=== PATIENT | female | born 1965 | race Caucasian/White ===

== ENCOUNTER 2018-08-22 07:24 | Inpatient (IN) ==
--- NOTE | 2018-08-03 14:43 | Anesthesiology Consultation ---
Date of Service August 03, 2018 Assessment & Plan (1) Encounter for pre-operative examination: Chart Review Chart Review: Acceptable Risk for Surgery and Patient seen in Pre Admission Testing Consults Requested medical (Dr. Goncalves (08/08)) Patient was seen by PCPs office on 08/08/18. Per visit note, "pt is medically stable for surgery." Teaching & Discussion Pre-Anesthesia Teaching/Discussion Notes: Instructed NPO after midnight before surgery, except medications with 15 cc of water. Medication instructions provided according to the PAT guidelines. History Surgery Operation Date: 08/22/18 09:05 Proposed Procedures p Left Total Hip Arthroplasty Anterior - Ernst Fitzgerald, Height/Weight Height: 5 ft 6 in Weight: 83.8 kg Allergies Allergy/AdvReac Type Severity Reaction Status Date / Time No Known Allergies Allergy Verified 07/28/18 12:02 Medications Home Medications Medication Instructions Recorded Confirmed Last Taken atenolol 1.5 tab PO BID 07/28/18 07/28/18 07/28/18 cholecalciferol (vitamin D3) 1,000 unit PO DAILY 07/28/18 07/28/18 Unknown [Vitamin D3] cyanocobalamin (vitamin B-12) 500 mcg PO DAILY 07/28/18 07/28/18 Unknown [Vitamin B-12] ibuprofen-famotidine [Duexis] 1 tab PO TID 07/28/18 07/28/18 07/28/18 multivitamin [Multiple Vitamins] 1 tab PO DAILY 07/28/18 07/28/18 Unknown omega 5-edx-hqa-fish oil [Fish Oil] 1 cap PO DAILY 07/28/18 07/28/18 Unknown Past Medical History Medical History Benign neoplasm of pituitary gland Borderline high cholesterol Hypertension Osteoarthritis Past Family History Family History Mother Family history of heart disease Grandfather Family history of prostate cancer Past Surgical History Surgical History History of appendectomy History of carpal tunnel surgery of right wrist History of eye surgery LASIK History of hip surgery LEFT ARTHROSCOPY History of removal of cyst RIGHT BREAST, LEFT THIGH, RIGHT FOREARM History of right oophorectomy History of tonsillectomy Nausea and vomiting after administration of anesthetic agent "PATCH BEHIND EAR REALLY HELPED" Past Anesthesia History No Hx of Anesthesia Complications and No Family Hx of Anesthesia Complications History of PONV Yes Motion Sickness Screening History of Motion Sickness: Yes Social History Smoking Status: Never smoker Do You Dip or Chew Tobacco: No Hx Alcohol Use: Yes Alcohol type: beer alcohol intake frequency: a few times a week Hx Substance Use: No substance use type: does not use Exercise / Class Metabolic Activity II 4-5 Yardwork/Stairs/Walk up hill Tries to walk daily. Able to climb FOS. Denies CP or SOB. Review of Systems Patient denies chest pain, shortness of breath, dyspnea on exertion, reflux, cough, wheezing, palpitations. +joint pain (hip, low back occasionally) Physical Exam Vital Signs BP: 110/73 P: 50 R: 16 T: 98.1 SPO2: 97% on RA ENMT Thyromental Distance: < 3.5 Finger Breadths (3) Mallampati Class: III Neck normal visual inspection and trachea midline; neck extension not limited Respiratory normal respiratory effort Auscultation: lungs clear to auscultation bilaterally Cardiovascular Rate/Rhythm: + bradycardic Heart Sounds: no murmur Neurologic moves all extremities Psychiatric Orientation: alert and oriented x 3 Testing Electrocardiogram Date: 08/03/18 Findings: + SB @ (45) Chest X-Ray Date: 08/03/18 Findings: + NAD FINDINGS: PA and lateral chest radiographs are obtained. No prior studies are available for comparison at the time of dictation. The cardiomediastinal silhouette is unremarkable. The lungs and pleural spaces are clear. There is no pneumothorax. The bony thorax appears intact. Calcific tendinopathy is noted in the left shoulder. IMPRESSION: No active disease in the chest. Laboratory Results 08/03/18 15:15 08/03/18 15:15 Blood Type A Negative 08/03/18 15:15 Antibody Screen NEGATIVE 08/03/18 15:15 PT 10.5 Seconds (9.0-12.0) 08/03/18 15:15 INR 1.0 (0.9-1.1) 08/03/18 15:15 APTT 25.9 Seconds (21.0-31.0) 08/03/18 15:15 Hemoglobin A1c 5.2 % (4.5-5.6) 08/03/18 15:15 Urine Color Yellow 08/03/18 15:15 Urine Appearance Clear (Clear) 08/03/18 15:15 Urine pH 5.5 (4.5-7.5) 08/03/18 15:15 Ur Specific [place] 1.014 (1.000-1.030) 08/03/18 15:15 Urine Protein Negative (Negative) 08/03/18 15:15 Urine Glucose (UA) Negative (Negative) 08/03/18 15:15 Urine Ketones Negative (Negative) 08/03/18 15:15 Urine Nitrite Negative (Negative) 08/03/18 15:15 Ur Leukocyte Esterase Negative (Negative) 08/03/18 15:15 08/03/18 15:15 Urine Culture - Final Urine,Clean Catch No growth - less than 1,000 colonies/mL.
--- NOTE | 2018-08-03 14:45 | PAT Medication Instructions ---
Medication Instructions Date of Service August 03, 2018 Home Medications atenolol 1.5 tab PO BID cholecalciferol (vitamin D3) 1,000 unit PO DAILY cyanocobalamin (vitamin B-12) 500 mcg PO DAILY ibuprofen-famotidine [Duexis] 1 tab PO TID multivitamin [Multiple Vitamins] 1 tab PO DAILY omega 2-qcc-bce-fish oil [Fish Oil] 1 cap PO DAILY ASK your surgeon for instructions ibuprofen-famotidine [Duexis] 1 tab PO TID STOP taking 2 weeks before surgery omega 9-ryg-bdq-fish oil [Fish Oil] 1 cap PO DAILY DO NOT take the morning of surgery cholecalciferol (vitamin D3) 1,000 unit PO DAILY cyanocobalamin (vitamin B-12) 500 mcg PO DAILY multivitamin [Multiple Vitamins] 1 tab PO DAILY Take morning of surgery With a small sip of water, OTHERWISE NOTHING TO EAT OR DRINK AFTER MIDNIGHT: atenolol 1.5 tab PO BID Take evening before surgery atenolol 1.5 tab PO BID Other Notes If you have any questions please call us at [phone] or [phone] or [phone] or [phone]
[2018-08-03 15:48] LABS: Basophils # (auto) 0.04 K/uL (0-0.2); Basophils % (auto) 0.6 %; Eosinophils # (auto) 0.21 K/uL (0-0.5); Eosinophils % (auto) 3.2 %; Hematocrit (blood only) 37.7 % (37-47); Hemoglobin 12.9 g/dL (12.0-16.0); Immature Granulocytes # (auto) 0.01 K/uL (0.00-0.02); Immature Granulocytes % (auto) 0.2 %; Lymphocytes # (auto) 2.75 K/uL (1.2-3.4); Lymphocytes % (auto) 41.6 %; Mean Corpuscular Hgb Conc 34.2 g/dL (32-36); Mean Platelet Volume 10.5 fL (7.4-10.4); Monocytes # (auto) 0.37 K/uL (0.11-0.59); Monocytes % (auto) 5.6 %; Neutrophils # (auto) 3.23 K/uL (1.4-6.5); Neutrophils % (auto) 48.8 %; Platelet Count 211 K/uL (130-400); RDW Coefficient of Variation 12.5 % (11.5-14.5); RDW Standard Deviation 40.5 fL (36.4-46.3); Red Blood Count 4.19 M/uL (4.2-5.4); White Blood Count 6.61 K/uL (4.8-10.8)
--- NOTE | 2018-08-03 15:49 | XRay Report ---
TWO VIEW CHEST CLINICAL HISTORY: Preoperative examination. FINDINGS: PA and lateral chest radiographs are obtained. No prior studies are available for compariso n at the time of dictation. The cardiomediastinal silhouette is unremarkable. The lungs and pleural spaces are clear. There is no pneumothorax. The bony thorax appears intact. Calcific tendinopathy is noted in the left shoulder. IMPRESSION: No active disease in the chest. Electronically signed by: Isrrael Yepez M.D. 08/03/2018 3:48 PM
[2018-08-03 15:52] LABS: Appearance Urine Clear (Clear); Bilirubin Urine Negative (Negative); Blood Urine Negative (Negative); Color Urine Yellow; Glucose Urine UA Negative (Negative); Ketones Urine Negative (Negative); Leukocyte Esterase Urine Negative (Negative); Nitrite Urine Negative (Negative); Protein Urine Negative (Negative); Specific Gravity Urine 1.014 (1.000-1.030); Urobilinogen Urine Negative (Negative); pH Urine 5.5 (4.5-7.5)
[2018-08-03 15:54] LABS: Albumin Level 3.7 gm/dl (3.4-5.0); BUN Creatinine Ratio 23.7 (10-20); Calcium 9.1 mg/dl (8.5-10.1); Creatinine Clr Calc Pharmacy 74.8 ml/min; Est GFR (African American) 78.8; Potassium 3.9 mmol/L (3.5-5.1)
[2018-08-03 15:57] LABS: Partial Thromboplastin Time 25.9 Seconds (21.0-31.0); Prothrombin Time 10.5 Seconds (9.0-12.0)
[2018-08-04 06:16] LABS: Estimated Average Glucose 103 mg/dl; Hemoglobin A1C 5.2 % (4.5-5.6)
--- NOTE | 2018-08-21 17:28 | History & Physical Report ---
Date of Service August 21, 2018 Assessment & Plan (1) Degenerative joint disease (DJD) of hip: I have indicated the patient for left anterior total hip replacement. The risks, benefits and complications of surgery were explained to the patient which include but not limited to infection, acute blood loss, DVT/PE, injury to nerves, vessels, bone, soft tissue, arthrofibrosis, chronic pain, failure of the prosthesis, hip dislocation, leg length discrepancy, need for additional surgery, cardiac and pulmonary events and . The patient wished to proceed with surgery and informed consent was obtained at this time. We will plan for ASA BID post-operatively for DVT prophylaxis. Upon discharge the patient will be discharged home with home health services. Appropriate clearances by PCP were obtained. History of Present Illness Chief Complaint: Left hip pain/djd Primary Care Provider: Marcelo Goncalves The patient is a 53 year old female who presents with complaints of severe left hip pain and DJD. The patient has failed outpatient conservative treatments to this point which included NSAIDs, IA corticosteroid injections, PT/HEP. The patient's pain and limited function have progressed to the point where they severely hinder their activities of daily living and they no longer tolerate exercise programs. They are requesting to proceed with total hip replacement surgery. Allergies Allergy/AdvReac Type Severity Reaction Status Date / Time moxifloxacin [From Avelox] AdvReac Nausea Verified 08/22/18 07:48 Home Medications Home Medications Medication Instructions Recorded Confirmed Type atenolol 1.5 tab PO BID 07/28/18 08/22/18 History cholecalciferol (vitamin D3) 1,000 unit PO DAILY 07/28/18 08/22/18 History [Vitamin D3] cyanocobalamin (vitamin B-12) 500 mcg PO DAILY 07/28/18 08/22/18 History [Vitamin B-12] ibuprofen-famotidine [Duexis] 1 tab PO TID 07/28/18 08/22/18 History multivitamin [Multiple Vitamins] 1 tab PO DAILY 07/28/18 08/22/18 History omega 3-fek-kwa-fish oil [Fish Oil] 1 cap PO DAILY 07/28/18 08/22/18 History diphenhydramine-acetaminophen 0.5 tab PO QPM PRN 08/22/18 08/22/18 History [Tylenol PM Extra Strength] Past Med/Surg History Medical History Benign neoplasm of pituitary gland Borderline high cholesterol Hypertension Osteoarthritis Surgical History History of appendectomy History of carpal tunnel surgery of right wrist History of eye surgery LASIK History of hip surgery LEFT ARTHROSCOPY History of removal of cyst RIGHT BREAST, LEFT THIGH, RIGHT FOREARM History of right oophorectomy History of tonsillectomy Nausea and vomiting after administration of anesthetic agent "PATCH BEHIND EAR REALLY HELPED" Family History Mother Family history of heart disease Grandfather Family history of prostate cancer Social History Preferred Language: Bulgarian Communication Ability: Effective X Ray Service Engineer Required: No Beliefs That Will Affect Care: None Current Living Situation: Spouse Other Information That Helps Us Care for You: No Feels Safe at Home: Yes Smoking Status: Never smoker Do You Dip or Chew Tobacco: No Hx Alcohol Use: Yes Alcohol type: beer Hx Substance Use: No Review of Systems Review of Systems: All systems reviewed & are unremarkable except as noted in HPI & below Constitutional: as per Subjective / HPI Physical Exam Physical Exam: LLE NVSI +EHL/FHL/TA/GS SILT grossly, +2 DP pulse, compartments soft NT, painful limited ROM of the hip, anatalgic gait. Constitutional: WD/WN, vitals as above Eyes: PERRL, conjunctivae normal, anicteric sclerae ENMT: external ear and nose normal, oropharynx normal Neck: trachea midline, no thyromegaly Respiratory: normal respiratory effort, lungs clear to auscultation Cardiovascular: RRR, no murmur, no edema Gastrointestinal (Abdomen): normal bowel sounds, soft, nontender, no hepatosplenomegaly Musculoskeletal: no cyanosis or clubbing, extremities motor strength 5/5 Skin: no rashes, warm and dry Neurologic: patellar DTR's 2+ bilat, sensation intact Psychiatric: A+Ox3, euthymic affect Lymphatic: no cervical or axillary lymphadenopathy Results & Data Diagnostic Findings Multiple views of the hip demonstrates severe DJD with complete loss of the joint space. +osteophytes, +sclerosis, +subchondral cysts.
[~2018-08-22 07:24] MED LIST: ACETAMINOPHEN 500 MG TAB PO SCH; BUPIVACAINE 0.5 % 5 MG/1 ML PF 10ML VIAL ONE; CEFAZOLIN 2000MG 2,000 MG/15 ML SYR IV SCH; CeleBREX 200 MG CAP PO SCH; FAMOTIDINE 20 MG TAB PO SCH; LIDOCAINE HCL 2% 2 ML VIAL/AMP(20MG/ML) INFIL ONE; LR 500ML BOLUS, THEN 15ML/HR IV SCH; METOCLOPRAMIDE HCL 10 MG TABLET PO SCH; MIDAZOLAM HCL 1 MG/ML 2ML VIAL ONE; ONDANSETRON INJ 2 MG/ML 2 ML VIAL ONE; PROPOFOL IV EMULSION 10 MG/ML 20 ML VIAL IV ONE; SCOPOLAMINE 1.5 MG TDSY TD SCH; TRANEXAMIC ACID 1,000 MG **IV Intra-op IV SCH; TRANEXAMIC ACID 1,000 MG **IV Pre-op IV SCH; dexAMETHasone 4 MG TAB PO SCH; fentaNYL citrate 100 MCG/2 ML VIAL ONE
[2018-08-22] MEDS ORDERED: ONDANSETRON INJ 2 MG/ML 2 ML VIAL IV PRN ×2 (07:33→12:45)
[2018-08-22] MEDS ORDERED: PHENYLEPHRINE 100MCG/ML 5ML SYR IV PRN (07:33)
[2018-08-22] MEDS ORDERED: HYDROmorphone INJ 1 MG/ML SYRINGE IV PRN (07:33)
[2018-08-22] MEDS ORDERED: PROMETHAZINE HCL 12.5 MG in SODIUM CHLORIDE 0.9% 50 ML IV PRN (07:33)
[2018-08-22] MEDS ORDERED: ePHEDrine sulfate 50 MG/ML AMP IV PRN (07:33)
[2018-08-22] MEDS ORDERED: ATROPINE SULFATE 0.1 MG/ML 10ML SYR IV PRN (07:33)
[2018-08-22] MEDS ORDERED: fentaNYL citrate 100 MCG/2 ML VIAL IV PRN (07:33)
[2018-08-22 08:33] LABS: Pregnancy Test, Serum Negative (Negative)
[2018-08-22] MEDS ORDERED: ORTHO JOINT ANESTHETIC ONE (09:06)
[2018-08-22] MEDS ORDERED: BACITRACIN INJ 50,000 UNIT VIAL ONE (09:07)
[2018-08-22] MEDS ORDERED: POVIDONE-IODINE OP SOLN 30 ML BTL ONE (09:07)
--- NOTE | 2018-08-22 09:31 | History & Physical Bridge Note ---
Date of Service August 22, 2018 History & Physical Bridge Note I have examined the patient, reviewed the History & Physical and in the interval since the performance of the History & Physical I have noted the following changes of clinical significance: no changes noted
[2018-08-22] MEDS ORDERED: ROPIVACAINE 0.5% HCL/PF 150 MG, BUPIVACAINE 0.5% MPF 30 ML, EPINEPHrine 30MG/30ML (OR U... INFIL SCH (09:45)
[2018-08-22] MEDS ORDERED: DEXAMETHASONE SOD INJ 4 MG/ML VIAL ONE (10:15)
[2018-08-22] MEDS ORDERED: ePHEDrine sulfate 50 MG/ML SYR ONE (10:46)
[2018-08-22] MEDS ORDERED: PROPOFOL IV EMULSION 10 MG/ML 20 ML VIAL IV ONE (11:18)
--- NOTE | 2018-08-22 11:23 | Post Operative Brief Note ---
Immediate Post Op Note v1 Date of Surgery August 22, 2018 Pre & Post Diagnosis Operation Date: 08/22/18 09:30 Pre-Op Diagnosis: Left hip degenerative joint disease Post-Op Diagnosis: Left hip degenerative joint disease Procedure Operation Date: 08/22/18 09:30 Actual Procedures p Left Anterior Total Hip Arthroplasty(Left) - Ernst Fitzgerald DO Surgeon Ernst Fitzgerald DO Enrobing Machine Feeder Yossi Batista Estimated Blood Loss 120 Findings Consistent with Post-Op Diagnosis Fluids 1400 CC LR Specimens femoral head Anesthesia Type Spinal MAC Complications none Disposition Disposition: Recovery Room Overlapping Procedure I was present for: the critical portions of procedure. I was immediately available: during the entire case. Back up surgeon: was not required during procedure.
--- NOTE | 2018-08-22 11:43 | Operative Report ---
Post Operative Report Pre & Post Diagnosis Operation Date: 08/22/18 09:30 Pre-Op Diagnosis: Left hip degenerative joint disease Post-Op Diagnosis: Left hip degenerative joint disease Procedure Operation Date: 08/22/18 09:30 Actual Procedures p Left Anterior Total Hip Arthroplasty(Left) - Ernst Fitzgerald DO Surgeon Ernst Fitzgerald DO Time Study Technologist Yossi Batista Estimated Blood Loss 120 Findings Consistent with Post-Op Diagnosis Fluids 1400 cc of lactated Ringer Specimens Femoral head Anesthesia Type Spinal MAC Disposition Disposition: Recovery Room Indications The patient is a 53-year-old female who presents with severe progressive left hip DJD who has failed outpatient conservative treatments. I indicated the patient for a anterior total hip replacement and the risks and benefits were explained in detail which include but not limited to infection, bleeding, blood clot, damage to surrounding bone, nerves, vessels, soft tissue, hip dislocation, failure of the prosthesis, leg length discrepancy, need for additional surgery and . The patient agreed to proceed with replacement of the hip and informed consent was obtained. Appropriate clearances were obtained. Description of Procedure COMPONENTS USED: [employer] hip system: Acetabulum size 40, femur size 7 high offset, femoral head 32-3, liner 3240, acetabular screw 25 mm. DESCRIPTION OF PROCEDURE: Following satisfactory spinal anesthesia, the patient was placed supine on the OR table. The right leg was placed in the well leg espino and the left leg in the traction device. The left leg was prepared with ChloraPrep and draped sterilely. A surgical timeout was performed, patient identified in site xiang confirmed. Appropriate antibiotics were given. A standard anterior approach in the interval between the sartorius and tensor muscles was performed. Dissection was carried down through subcutaneous tissues. Electrocautery was utilized for hemostasis. Circumflex femoral vessels were identified, tied and ligated. The anterior capsular fat pad was removed and the capsulotomy was performed revealing the arthritic femoral neck and head. A femoral neck cut was made with reciprocating saw and the bone fragments removed. The acetabular self-retraining retractor was placed. Acetabular reaming was completed under fluoroscopic guidance, a 48 shell was impacted into an anatomic position and secured with a dome screw. Local anesthetic was placed and following irrigation, the polyethylene liner was placed. The femur was placed into position of external rotation, extension and adduction. Femoral canal was prepared up to the size 7 high offset. Trial reduction with a -3 neck length head showed good soft tissue tension, leg lengths restored, and good fit and fill of the proximal canal using fluoroscopic landmarks. The hip was dislocated. The trial component was removed. The final implant was placed. The hip was irrigated with sterile saline soluation and reduced. A Betadine soak was performed. After 3 minutes, the hip was once more irrigated with copious sterile saline solution with bacitracin. Esther-incisional soft tissue was injected utilizing [place] Orthomix which includes a combination of Ropivicaine 0.5% 150mg, Bupivicaine 0.5%/Epinephrine 1:200,000 30ml, Toradol 30mg, Dexamethasone 4mg, Ketamine 10mg, Clonidine 100mcg and NSS 30ml solution. The capsule was then closed with 1-0 Vicryl interrupted figure of eight sutures. The fascia was closed with a running suture of #1 Vicryl, the subcutaneous tissues with 2-0 Vicryl and the skin with a running subcuticular stitch of 3-0 V-Loc. Dermabond prineo and a dry dressing which included Suzanne incisional VAC were applied. The patient tolerated the procedure well and was transported to PACU in stable condition. Due to the complex nature of the procedure, the entire surgery was performed with the operational assistance of Yossi Batista PA-C. The camp assistant, under direct supervision, was involved in the actual performance of all aspects of the surgical procedure including patient positioning, hemostasis, tissue retraction, instrument management and wound closure. I attest to the content of the Intraoperative Record and any orders documented therein. Any exceptions are noted below.
--- NOTE | 2018-08-22 11:45 | Fluoroscopy Report ---
FL hip LT 1V CLINICAL HISTORY: LEFT ANTERIOR HIP COMPARISON STUDY: None. FLUOROSCOPY TIME: 0.8 minutes. FINDINGS: 2 fluoroscopic spot image of the left hip demonstrate a left total hip arthroplasty. The pugh rdware is intact. No fracture or dislocation. IMPRESSION: Fluoroscopy provided for a left total hip arthroplasty. Electronically signed by: Kilo [place] M.D. 08/22/2018 11:44 AM
--- NOTE | 2018-08-22 12:21 | XRay Report ---
XR hip 1V LT w pelvis HISTORY: 53 years-old Female IN PACU - A/P PELVIS and LATERAL HIP left hip total joint arthroplasty . History of degenerative joint disease COMPARISON: Left hip fluoroscopic images of same day TECHNIQUE: AP view of the pelvis with crosstable lateral view of the left hip FINDINGS: Left hip total joint arthroplasty demonstrates satisfactory alignment. No acute fracture or retained foreign body. Expected postsurgical soft tissue swelling and deep tissue air with surgical drainage c atheter. Mild osteoarthritis about the right hip. IMPRESSION: Left hip total joint arthroplasty demonstrates satisfactory alignment. The above report was generated using voice recognition software. It may contain grammatical, syntax o r spelling errors. Electronically signed by: Delvis Vargas M.D. 08/22/2018 12:20 PM
--- NOTE | 2018-08-22 12:29 | Anesthesiology Progress Note ---
Date of Service August 22, 2018 Anesthesia Post Procedure Vital Signs Vital Signs: Temp Pulse Pulse Resp BP Pulse Ox 08/22/18 12:25 36.4 C L 53 L 15 110/76 100 08/22/18 12:15 57 L 13 108/63 100 08/22/18 12:05 60 17 110/74 100 08/22/18 11:56 36.5 C 67 10 L 116/70 99 08/22/18 07:54 36.7 C 46 L 18 169/80 H 99 Notes Mental Status: alert / awake / arousable Patient Amnestic to Procedure: Yes Nausea / Vomiting: adequately controlled Pain: adequately controlled Airway Patency, RR, SpO2: stable & adequate BP & HR: stable & adequate Neuraxial Anesthesia: was administered and sensory block is resolving Anesthetic Complications: no major complications apparent
[2018-08-22] MEDS ORDERED: OXYCODONE HCL IR 5 MG TAB (IMMEDIATE RELEASE) PO PRN (12:45)
[2018-08-22] MEDS ORDERED: BISACODYL 10 MG SUPP PR PRN (12:45)
[2018-08-22] MEDS ORDERED: METOCLOPRAMIDE HCL INJ 5 MG/ML 2 ML VIAL IV PRN (12:45)
[2018-08-22] MEDS ORDERED: HYDROmorphone INJ 0.5 MG/0.5 ML SYR IV PRN (12:45)
[2018-08-22] MEDS ORDERED: NALOXONE HCL 0.4 MG/1 ML VIAL/CARP IV PRN (12:45)
[2018-08-22] MEDS ORDERED: MAGNESIUM HYDROXIDE SUSP 30 ML UDC PO PRN (12:45)
[2018-08-22] MEDS ORDERED: SODIUM CHLORIDE 0.9% 1000ML 1,000 ML IV SCH (13:45)
[2018-08-22] MEDS: KETOROLAC TROMETHAMINE 15 MG/ML VIAL IV SCH ×2 (14:00→20:11)
[2018-08-22] MEDS: CHECK SCOPOLAMINE PATCH PLACEMENT SCH ×2 (16:04→23:12)
[2018-08-22] MEDS: CEFAZOLIN 2000MG 2,000 MG/15 ML SYR IV SCH (17:24)
[2018-08-22] MEDS: DOCUSATE SODIUM 100 MG CAP PO SCH (20:11)
[2018-08-22] MEDS: ATENOLOL 25 MG TABLET PO SCH (20:12)
[2018-08-22] MEDS ORDERED: SENNA 8.6 MG TAB PO SCH (21:00)
--- NOTE | 2018-08-22 21:47 | Orthopedic Progress Note ---
Date of Service August 22, 2018 Assessment & Plan (1) Degenerative joint disease (DJD) of hip: s/p L anterior SAURABH -ancef x 24 -DVT ppx SCDs, TEDs, ASA BID -WBAT LLE -PT/OT -Post op XR well aligned well fixed prosthesis without fracture/dislocation -am labs -DC planning - Home with HH Subjective Post Operative Progress Note Patient seen sitting up in bed, comfortable, denies complaints, pain well controlled, no acute issues. Review of Systems Review of Systems: All systems reviewed & are unremarkable except as noted in HPI & below Constitutional: as per Subjective / HPI Physical Exam Physical Exam: LLE NVSI +EHL/FHL/TA/GS SILT grossly, +2 DP pulse, compartments soft NT, dressing cdi. Constitutional: WD/WN, vitals as above Results & Data Vital Signs (Past 12 Hours) Vital Signs Temp Pulse Pulse Pulse Resp BP Pulse Ox 08/22/18 20:10 57 L 105/57 L 08/22/18 15:39 36.5 C 51 L 16 117/69 98 08/22/18 14:49 56 L 15 115/66 100 08/22/18 13:35 36.5 C 55 L 16 107/65 99 08/22/18 13:05 51 L 15 119/65 100 08/22/18 12:35 36.5 C 55 L 14 117/72 100 08/22/18 12:25 36.4 C L 53 L 15 110/76 100 08/22/18 12:15 57 L 13 108/63 100 08/22/18 12:05 60 17 110/74 100 08/22/18 11:56 36.5 C 67 10 L 116/70 99
[2018-08-22] MEDS: ACETAMINOPHEN 500 MG TAB PO SCH (23:11)
[2018-08-23] MEDS: CEFAZOLIN 2000MG 2,000 MG/15 ML SYR IV SCH (01:39)
[2018-08-23] MEDS: KETOROLAC TROMETHAMINE 15 MG/ML VIAL IV SCH ×2 (01:39→07:50)
[2018-08-23] MEDS ORDERED: ROPIVACAINE 0.5% HCL/PF 150 MG, BUPIVACAINE 0.5% MPF 30 ML, EPINEPHrine 0.15 MG, Ketoro... INFIL SCH (06:00)
[2018-08-23] MEDS: ACETAMINOPHEN 500 MG TAB PO SCH (06:01)
[2018-08-23 06:09] LABS: Basophils # (auto) 0.01 K/uL (0-0.2); Basophils % (auto) 0.1 %; Hematocrit (blood only) 31.7 % (37-47); Hemoglobin 10.7 g/dL (12.0-16.0); Immature Granulocytes # (auto) 0.05 K/uL (0.00-0.02); Immature Granulocytes % (auto) 0.3 %; Lymphocytes % (auto) 12.8 %; Mean Corpuscular Hgb Conc 33.8 g/dL (32-36); Mean Corpuscular Volume 90.8 fL (80-100); Mean Platelet Volume 10.1 fL (7.4-10.4); Monocytes # (auto) 1.07 K/uL (0.11-0.59); Monocytes % (auto) 7.2 %; Neutrophils # (auto) 11.78 K/uL (1.4-6.5); Neutrophils % (auto) 79.6 %; Platelet Count 176 K/uL (130-400); RDW Coefficient of Variation 12.3 % (11.5-14.5); RDW Standard Deviation 41.1 fL (36.4-46.3); Red Blood Count 3.49 M/uL (4.2-5.4); White Blood Count 14.81 K/uL (4.8-10.8)
[2018-08-23 06:46] LABS: BUN Creatinine Ratio 22.9 (10-20); Calcium 8.6 mg/dl (8.5-10.1); Creatinine Clr Calc Pharmacy 80.3 ml/min; Est GFR (African American) 86.4; Est GFR (Non-African American) 74.5; Potassium 4.1 mmol/L (3.5-5.1)
[2018-08-23] MEDS: CHECK SCOPOLAMINE PATCH PLACEMENT SCH (07:49)
--- NOTE | 2018-08-23 08:13 | Anesthesiology Progress Note ---
Date of Service August 23, 2018 Anesthesia Post Procedure Vital Signs Vital Signs: Temp Pulse Pulse Pulse Resp BP Pulse Ox 08/23/18 03:20 36.9 C 46 L 14 100/60 98 08/22/18 23:06 36.7 C 47 L 14 105/62 100 08/22/18 20:10 57 L 105/57 L 08/22/18 15:39 36.5 C 51 L 16 117/69 98 08/22/18 14:49 56 L 15 115/66 100 08/22/18 13:35 36.5 C 55 L 16 107/65 99 08/22/18 13:05 51 L 15 119/65 100 08/22/18 12:35 36.5 C 55 L 14 117/72 100 08/22/18 12:25 36.4 C L 53 L 15 110/76 100 08/22/18 12:15 57 L 13 108/63 100 08/22/18 12:05 60 17 110/74 100 08/22/18 11:56 36.5 C 67 10 L 116/70 99 Pain Intensity Left Hip: Pain Intensity: 4 Notes Mental Status: alert / awake / arousable Patient Amnestic to Procedure: Yes Nausea / Vomiting: adequately controlled Pain: adequately controlled Airway Patency, RR, SpO2: stable & adequate BP & HR: stable & adequate Hydration State: stable & adequate Neuraxial Anesthesia: was administered and sensory block resolved Anesthetic Complications: no major complications apparent
[2018-08-23] MEDS: DOCUSATE SODIUM 100 MG CAP PO SCH (08:46)
[2018-08-23] MEDS: ATENOLOL 25 MG TABLET PO SCH (08:49)
--- NOTE | 2018-08-23 08:52 | Orthopedic Progress Note ---
Date of Service August 23, 2018 Assessment & Plan (1) Degenerative joint disease (DJD) of hip: s/p L anterior SAURABH POD#1 -ancef x 24 -DVT ppx SCDs, TEDs, ASA BID -WBAT LLE -PT/OT -Post op XR well aligned well fixed prosthesis without fracture/dislocation -am labs - hgb 10.7 -DC planning - Home with HH today Subjective Post Operative Progress Note Patient seen sitting up in bed, comfortable, denies complaints, pain well controlled, no acute issues. Review of Systems Review of Systems: All systems reviewed & are unremarkable except as noted in HPI & below Constitutional: as per Subjective / HPI Physical Exam Physical Exam: LLE NVSI +EHL/FHL/TA/GS SILT grossly, +2 DP pulse, compartments soft NT, dressing cdi. Constitutional: WD/WN, vitals as above Results & Data Vital Signs (Past 12 Hours) Vital Signs Temp Pulse Pulse Resp BP Pulse Ox 08/23/18 08:45 36.6 C 47 L 18 120/66 100 08/23/18 03:20 36.9 C 46 L 14 100/60 98 08/22/18 23:06 36.7 C 47 L 14 105/62 100
[2018-08-23] MEDS ORDERED: MULTIVITAMIN TAB PO SCH (09:00)
[2018-08-23] MEDS ORDERED: ASPIRIN 325 MG ECTAB PO SCH (09:00)
[2018-08-23] MEDS ORDERED: CeleBREX 200 MG CAP PO SCH (21:00)
--- NOTE | 2018-08-30 | Discharge Summary ---
Date of Service August 29, 2018 Admission HPI Per Admitting Provider The patient is a 53 year old female who presents with complaints of severe left hip pain and DJD. The patient has failed outpatient conservative treatments to this point which included NSAIDs, IA corticosteroid injections, PT/HEP. The patient's pain and limited function have progressed to the point where they severely hinder their activities of daily living and they no longer tolerate exercise programs. They are requesting to proceed with total hip replacement surgery. Principal Diagnosis Left anterior total hip replacement Discharge Exam LLE NVSI +EHL/FHL/TA/GS SILT grossly, +2 DP pulse, compartments soft NT, dressing cdi. Constitutional WD/WN, vitals as above Eyes PERRL, conjunctivae normal, anicteric sclerae ENMT external ear and nose normal, oropharynx normal Neck trachea midline, no thyromegaly Respiratory normal respiratory effort, lungs clear to auscultation Cardiovascular RRR, no murmur, no edema Gastrointestinal (Abdomen) normal bowel sounds, soft, nontender, no hepatosplenomegaly Musculoskeletal no cyanosis or clubbing, extremities motor strength 5/5 Skin no rashes, warm and dry Neurologic patellar DTR's 2+ bilat, sensation intact Psychiatric A+Ox3, euthymic affect Lymphatic no cervical or axillary lymphadenopathy Discharge Data Allergies Allergy/AdvReac Type Severity Reaction Status Date / Time moxifloxacin [From Avelox] AdvReac Nausea Verified 08/22/18 07:48 Consultations 08/23/18 08:00 Consult Case Management - Discharge Planning Routine Procedures Performed Operation Date: 08/22/18 09:30 Actual Procedures p Left Anterior Total Hip Arthroplasty(Left) - Ernst Fitzgerald DO Ordered Studies 08/22/18 09:30 FL fluoroscopy <1hr Routine FL hip LT 1V Routine Hospital Course (1) Degenerative joint disease (DJD) of hip: The patient is a 53 -year-old female who presents with long standing hist ory of severe left hip DJD and failed outpatient conservative treatments including NSAIDs, bracing, injections and home walking/exercise program. The patient's symptoms have progressed to the point where it has been difficult to perform even normal activities of daily living. I indicated the patient for a left anterior total hip arthroplasty, the risks, benefits and complications of the procedure include but not limited to infection, bleeding, damage to bone, nerves, vessels, surrounding soft tissue, may develop blood clots, loss of function, leg length discrepancy, dislocation, failure of the components, loosening of the components, the need for additional surgery and . The patient wished to proceed with surgery at this time and informed consent was obtained. Hospital Course: On 08/22/18 the patient was taken to the operating room, adequate anesthesia administered and underwent a left anterior total hip arthroplasty. The patient tolerated the procedure well and was taken to the PACU in stable condition. Post-operatively the patient was started on a DVT ppx medication and given appropriate IV antibiotics. Consults were placed to physical therapy, occupational therapy and case management. On POD#1, the patient did well overnight and their pain was well controlled. Labs were drawn and the Hgb was 10.7. The patient progressed well with PT. Dressings were changed at this time and the incision was clean, dry and intact. The patients hospital stay was relatively uneventful and they were deemed stable by the orthopedic team and consultants to be discharged home with HH on 08/23/18. Discharge Instructions: Upon discharge the patient may weight bear as tolerates through their operative extremity. They were instructed to keep the incision clean and dry at all times. The patient may shower but should not submerge the incision, avoid bathing, pools and hot tubes. The patient was given a script for pain medication and should take as instructed. The patient was given a script for DVT ppx ASA 325mg BID and should take as directed. The patient was instructed to not drive or travel for long distances until cleared to do so. If the patient develops any symptoms of fevers, chills, nausea, vomiting, increased redness, swelling, pain or drainage from the surgical site, they should notify the office and/or proceed to the nearest emergency room. The patient should follow up in 10-14 days after surgery for their routine post-operative follow-up appointment and should call the office to confirm the date and time. s/p L anterior SAURABH POD#1 -ancef x 24 -DVT ppx SCDs, TEDs, ASA BID -WBAT LLE -PT/OT -Post op XR well aligned well fixed prosthesis without fracture/dislocation -am labs - hgb 10.7 -DC planning - Home with HH today Total Time Total Time Spent Total Time Spent (In Minutes): >60 minutes Total Time Includes: Examination of the Patient, Discharge Planning, Medication Reconciliation and Communication With Other Providers Discharge Plan Discharge Items Patient Disposition: Home - Home Health Services Reason For Visit: LEFT HIP OSTEOARTHRITIS Discharge Diagnosis: Left anterior total hip replacement Condition: Good Discharge Goals: Decrease discomfort, Improve function, Increase independence and Therapeutic intervention Activity: Per 'Additional Instructions' section Lifting: Wait until after follow-up appointment Bathing Comment: No bathing, pools or hot tubs Sexual Activity: Wait until after follow-up appointment Exercise/Sports: Wait until after follow-up appointment Driving/Machine Use Comment: No driving till cleared by your surgeon Weightbearing: Left weightbearing Non-emergency contact: Primary Care Provider and Surgeon Call non-emergency contact if: you have any medication questions, your symptoms worsen, your pain is not controlled, your pain is worsening, your pain is unusual for you, your pain is concerning for you, you have a fever, your temperature is above 101, your wound has increased redness, your wound has increased drainage and your wound pain has increased Follow-up/Referrals: Marcelo Goncalves, D.O. [Primary Care Provider] - Diet: Regular Addtl Provider Instructions: ACTIVITY RECOMMENDATIONS: SELF CARE INSTRUCTIONS AFTER TOTAL HIP REPLACEMENT : Direct Anterior Approach Until the incision and soft tissues around your hip have healed, there is a possibility that the hip prosthesis could dislocate. A. Hip flexion ( Up & Down out of chair or steps ) may be difficult. This is normal. B. Numbness in front of the thigh is also normal for a few weeks. C. Use hand rails when walking on stairs. D. Wear low heeled shoes with non-slip soles. E. Be sure that your floors are free of things that could trip you - throw rugs, electrical cords, small objects. Avoid wet and waxed floors, especially with crutches and canes. F. Try to walk several times a day with rest periods between. G. Continue with all the exercises taught to you in the hospital. Again, make walking a part of your daily routine. SPECIAL CARE INSTRUCTIONS: VERY IMPORTANT TO READ AND REVIEW A. You may still be at risk for phlebitis and blood clots. 1. Wear surgical stockings (TRUONG hose) for 2 weeks after surgery to improve circulation and reduce swelling. 2. Take Aspirin 325mg twice daily for 4 weeks or as directed by your doctor. This is your blood thinner. 3. High risk patients may be prescribed a stronger blood thinner if necessary. 4. If you are on Coumadin normally, your family doctor/regrind mill operator should monitor your blood work. Expect a phone call the day of or the day after bloodwork is drawn to adjust your dosage. B. You must take antibiotics before having dental work, bladder, bowel and other surgery. Your doctor will provide you with a permanent card to carry describing precautions. C. Call [facility] if you have a fever, redness or swelling around the incision, cloudy drainage from incision, or sudden increase in pain in your hip, not relieved by your regular pain medication. D. Please call the office at if you have any concerns or questions about your operation or recovery. * YOU MAY SHOWER, NO TUB BATHS UNTIL CLEARED BY YOUR DOCTOR. - Keep an extra close eye on the top portion of your incision. Be sure to keep clean & dry. * WEAR TRUONG HOSE 20 HOURS PER DAY FOR 2 WEEKS. * YOU MAY PROGRESS FROM A WALKER, TO A CANE, TO INDEPENDENT AT YOUR OWN PACE. * MOST PATIENTS WILL HAVE HOME NURSING FOR THERAPY. IF YOU DECIDE TO DO OUTPATIENT PHYSICAL THERAPY, PLEASE SCHEDULE THIS 3 TIMES PER WEEK. * DERMABOND Prineo- This is a mesh tape dressing that is covered with glue. It should remain in place until the incision is properly healed, usually 10-14 days. This dressing is designed to naturally slough off. You may trim the excess mesh tape as it peels off. Incision may be briefly wet in a shower. Dry immediately by blotting with a clean, dry towel. Do not bath or swim until instructed by your doctor. Do not scratch, rub, or pick at the dressing. Do not apply any topical ointments or lotions until dressing is completely removed and/or instructed by your doctor. There may be a small piece of suture material at one end of your incision. Do not pull or trim this. If it is bothersome or catching on clothing, you may cover it with a band-aid. *PREVENA incisional vac is a special dressing covering your incision. This dressing provides a sterile dry environment while you are healing. The dressing is to be left in place for 7 days post-operatively. Your home nurse or surgeon will remove. If you develop any redness or blisters or have any questions notify your surgeon immediately. FOLLOW UP VISIT: If appointment is not already scheduled: Please call [facility] [place] to make a follow-up appointment for 2 weeks after your surgery at . Prescriptions: New aspirin 325 mg Tablet,Delayed Release (Dr/Ec) 325 mg PO BID Qty: 28 RF: 0 celecoxib [Celebrex] 200 mg Capsule 200 mg PO BID PRN (Reason: pain) Qty: 28 RF: 0 oxycodone 5 mg Tablet 5 mg PO Q6H MDD 6 tabs PRN (Reason: pain) Qty: 30 RF: 0 sennosides [Senokot] 8.6 mg Tablet 17.2 mg PO HS PRN (Reason: constipation) Qty: 28 RF: 0 acetaminophen [Pain Reliever] 500 mg Tablet 1,000 mg PO Q8H PRN (Reason: pain) Qty: 90 RF: 0 Continued multivitamin [Multiple Vitamins] Tablet 1 tab PO DAILY RF: 0 cyanocobalamin (vitamin B-12) [Vitamin B-12] 500 mcg Tablet 500 mcg PO DAILY RF: 0 atenolol 50 mg Tablet 1.5 tab PO BID RF: 0 cholecalciferol (vitamin D3) [Vitamin D3] 1,000 unit Capsule 1,000 unit PO DAILY RF: 0 omega 6-[id number]-fish oil [Fish Oil] 1,000 mg (120 mg-180 mg) Capsule 1 cap PO DAILY RF: 0 Discontinued Duexis 800-26.6 mg Tablet 1 tab PO TID RF: 0 diphenhydramine-acetaminophen [Tylenol PM Extra Strength] 25-500 mg Tablet 0.5 tab PO QPM PRN (Reason: Sleep) RF: 0 Stand-Alone Forms: [employer], [facility]/Other Patient Handouts: Surgery Prevent DVT After, Replacement Hip Total Discharge Orders: Discharge Order (Routine); Ordered 08/23/18 Ordered By: Ernst Fitzgerald Admission Data Admit Date/Time: 08/22/18 12:00 Attending Provider: Ernst Fitzgerald Admit Provider: Ernst Fitzgerald Primary Care Provider: Marcelo Goncalves Service: Surgical Services Other Interventions: Discharge Summary Assessment (RN) Last Done: 08/23/18 10:46 DC Date/Time DO NOT enter until pt leaves facility: 08/23/18 13:06
== END 2018-08-23 13:06 | disposition home health service (06) | DRG 470 ==
LOC: ASU 07:24 → 3E 12:00